=== PATIENT | female | born 1955 | race Caucasian/White ===

== ENCOUNTER 2017-07-06 07:59 | Emergency (ER) | payer OTHER ==
[2017-07-06] MEDS ORDERED: ONDANSETRON 4 MG/2 ML VIAL IVP ONE (08:11)
[2017-07-06] MEDS ORDERED: NS 1,000 ML IV ONE ×2 (08:11→09:55)
[2017-07-06] MEDS ORDERED: DIAZEPAM 10 MG/2 ML SYR IVP ONE (08:13)
--- NOTE | 2017-07-06 08:16 | EDPHY ---
H & P Stated Complaint: Diarrhea Time Seen by Provider: 07/06/17 08:04 HPI/ROS: CHIEF COMPLAINT: Diarrhea HISTORY OF PRESENT ILLNESS: The patient is a 61-year-old female with history of adrenal insufficiency who states that she has had 8 episodes of watery diarrhea since last night. The last one had some reddish blood mixed in. No fever. She complains of cramping but no pain. No recent travel. No vomiting. REVIEW OF SYSTEMS: Constitutional: denies: chills, fever, recent illness, recent injury EENTM: denies: blurred vision, double vision, nose congestion Respiratory: denies: cough, shortness of breath Cardiac: denies: chest pain, irregular heart rate, lightheadedness, palpitations Gastrointestinal/Abdominal: See HPI denies: abdominal pain, vomiting, blood streaked stools Genitourinary: denies: dysuria, frequency, hematuria, pain Musculoskeletal: denies: joint pain, muscle pain Skin: denies: lesions, rash, jaundice, bruising Neurological: denies: headache, numbness, paresthesia, tingling, dizziness, weakness Hematologic/Lymphatic: denies: blood clots, easy bleeding, easy bruising Immunologic/allergic: denies: HIV/AIDS, transplant EXAM: GENERAL: Well-appearing, well-nourished and in no acute distress. HEAD: Atraumatic, normocephalic. EYES: Pupils equal round and reactive to light, extraocular movements intact, sclera anicteric, conjunctiva are normal. ENT: TMs normal, nares patent, oropharynx clear without exudates. Moist mucous membranes. NECK: Normal range of motion, supple without lymphadenopathy or JVD. LUNGS: Breath sounds clear to auscultation bilaterally and equal. No wheezes rales or rhonchi. HEART: Regular rate and rhythm without murmurs, rubs or gallops. ABDOMEN: Soft, nontender, normoactive bowel sounds. No guarding, no rebound. No masses appreciated. Rectal: Empty vault, Hemoccult negative BACK: No CVA tenderness, no spinal tenderness, step-offs or deformities EXTREMITIES: Normal range of motion, no pitting or edema. No clubbing or cyanosis. NEUROLOGICAL: Cranial nerves II through XII grossly intact. Normal speech, normal gait. 5/5 strength, normal movement in all extremities, normal sensation PSYCH: Normal mood, normal affect. SKIN: Warm, dry, normal turgor, no visible rashes or lesions. Source: Patient Exam Limitations: No limitations - Medical/Surgical History Hx Asthma: No Hx Chronic Respiratory Disease: No Hx Diabetes: No Hx Cardiac Disease: Yes Hx Renal Disease: No Hx Cirrhosis: No Hx Alcoholism: No Hx HIV/AIDS: No Hx Splenectomy or Spleen Trauma: No Other PMH: HTN, back surgery, brain surgery x 2, bilateral knee surgery and bilateral carpal tunnel release/ lt shoulder, pituitary tumor, adrenal insufficiency, hypothyroidism - Family History Significant Family History: No pertinent family hx - Social History Smoking Status: Never smoked Alcohol Use: Sober Drug Use: None Constitutional: Initial Vital Signs Temperature (C) 36.7 C 07/06/17 08:04 Heart Rate 96 07/06/17 08:04 Respiratory Rate 20 07/06/17 08:04 Blood Pressure 112/75 07/06/17 08:04 O2 Sat (%) 96 07/06/17 08:04 O2 Delivery Mode Room Air O2 (L/minute) 1 Allergies/Adverse Reactions: Sulfa (Sulfonamide Antibiotics) Allergy (Mild, Verified 07/06/17 08:03) EMESIS Home Medications: Medication Instructions Recorded HYDROcodone/CPM TUSSIONEX 5 ml PO HS 09/05/15 [Tussionex Suspension (*)] levOFLOXACIN [levAQUIN (*)] 750 mg PO DAILY 09/05/15 Hydrocortisone [Cortef] 10 mg PO BID #21 tablet 09/06/15 Levothyroxine [Synthroid 25 mcg 25 mcg PO DAILY06 #0 tab 09/06/15 (*)] Ondansetron Odt [Zofran Odt 4 mg 4 mg PO Q4 PRN #40 tab 09/06/15 (*)] Medical Decision Making Procedures: Proctoscopy: No visible stool, no hemorrhoids. ED Course/Re-evaluation: 8:55 a.m. the patient is feeling much better. She has received 0.5 L of fluids. We discussed her lab work. Her abdominal exam remains benign. We continue to observe. 9:55 a.m. patient continues to have slight cramping that she thinks is gas. She has finished her L of fluid. Will hang another. 10:35 a.m. the patient is feeling much better and is eager to go will discharge her at this time. We discussed follow-up and indications for returning. Differential Diagnosis: Partial list of the Differential diagnosis considered include but were not limited to; gastritis, food poisoning, traumas diarrhea and although unlikely based on the history and physical exam, I also considered ulcerative colitis, Crohn's disease, obstruction, ischemia, appendicitis. I discussed these differential diagnoses and the plan with the patient as well as the usual and expected course. The patient understands that the diagnosis is provisional and that in medicine we are not always correct and that further workup is often warranted. Usual and customary warnings were given. All of the patient's questions were answered. The patient was instructed to return to the emergency department should the symptoms at all worsen or return, otherwise to followup with the physician as we discussed. - Data Points Laboratory Results: Laboratory Results 07/06/17 08:25 07/06/17 08:25 07/06/17 07/06/17 08:25 08:25 WBC 11.73 10^3/uL H 10^3/uL (3.80-9.50) RBC 4.86 10^6/uL 10^6/uL (4.18-5.33) Hgb 14.4 g/dL g/dL (12.6-16.3) Hct 40.9 % % (38.0-47.0) MCV 84.2 fL fL (81.5-99.8) MCH 29.6 pg pg (27.9-34.1) MCHC 35.2 g/dL g/dL (32.4-36.7) RDW 13.8 % % (11.5-15.2) Plt Count 294 10^3/uL 10^3/uL (150-400) MPV 9.3 fL fL (8.7-11.7) Neut % (Auto) 68.5 % % (39.3-74.2) Lymph % (Auto) 24.8 % % (15.0-45.0) Real % (Auto) 4.5 % % (4.5-13.0) Eos % (Auto) 1.4 % % (0.6-7.6) Baso % (Auto) 0.5 % % (0.3-1.7) Nucleat RBC Rel Count 0.0 % % (0.0-0.2) Absolute Neuts (auto) 8.02 10^3/uL H 10^3/uL (1.70-6.50) Absolute Lymphs (auto) 2.91 10^3/uL 10^3/uL (1.00-3.00) Absolute Monos (auto) 0.53 10^3/uL 10^3/uL (0.30-0.80) Absolute Eos (auto) 0.17 10^3/uL 10^3/uL (0.03-0.40) Absolute Basos (auto) 0.06 10^3/uL 10^3/uL (0.02-0.10) Absolute Nucleated RBC 0.00 10^3/uL 10^3/uL (0-0.01) Immature Gran % 0.3 % % (0.0-1.1) Immature Gran # 0.04 10^3/uL 10^3/uL (0.00-0.10) Sodium 139 mEq/L mEq/L (135-145) Potassium 4.2 mEq/L mEq/L (3.3-5.0) Chloride 102 mEq/L mEq/L (97-110) Carbon Dioxide 22 mEq/l mEq/l (22-31) Anion Gap 15 mEq/L mEq/L (8-16) BUN 18 mg/dL mg/dL (7-23) Creatinine 0.8 mg/dL mg/dL (0.6-1.0) Estimated GFR > 60 Glucose 96 mg/dL mg/dL (70-100) Calcium 11.5 mg/dL H mg/dL (8.5-10.4) Phosphorus 5.5 mg/dL H mg/dL (2.5-4.5) Total Bilirubin 0.7 mg/dL mg/dL (0.1-1.4) Conjugated Bilirubin 0.2 mg/dL mg/dL (0.0-0.5) Unconjugated Bilirubin 0.5 mg/dL mg/dL (0.0-1.1) AST 28 IU/L IU/L (14-46) ALT 28 IU/L IU/L (9-52) Alkaline Phosphatase 89 IU/L IU/L (38-126) Total Protein 7.6 g/dL g/dL (6.3-8.2) Albumin 4.2 g/dL g/dL (3.5-5.0) Lipase 158 IU/L IU/L (23-300) Medications Given: Discontinued Medications Diazepam (Valium) 2.5 mg IVP EDNOW ONE Stop: 07/06/17 08:14 Last Admin: 07/06/17 08:30 Dose: 2.5 mg Sodium Chloride (Ns) 1,000 mls @ 0 mls/hr IV EDNOW ONE; Wide Open PRN Reason: Protocol Stop: 07/06/17 08:12 Last Admin: 07/06/17 08:25 Dose: 1,000 mls Sodium Chloride (Ns) 1,000 mls @ 0 mls/hr IV EDNOW ONE; Wide Open PRN Reason: Protocol Stop: 07/06/17 09:56 Last Admin: 07/06/17 09:59 Dose: 1,000 mls Ketorolac Tromethamine (Toradol) 30 mg IVP EDNOW ONE Stop: 07/06/17 09:56 Last Admin: 07/06/17 10:00 Dose: 30 mg Ondansetron HCl (Zofran) 4 mg IVP EDNOW ONE Stop: 07/06/17 08:12 Last Admin: 07/06/17 08:28 Dose: 4 mg Departure - Departure Disposition: Home, Routine, Self-Care Clinical Impression: Dehydration Diarrhea Qualifiers: Diarrhea type: unspecified type Qualified Code(s): R19.7 - Diarrhea, unspecified Condition: Fair Instructions: Dehydration (ED), Acute Diarrhea (ED) Referrals: Eleonora Trejo MD [Primary Care Provider] - As per Instructions Stand Alone Forms: Work Excuse
[2017-07-06 08:30] LABS: PLATELET COUNT 294 10^3/uL (150-400)
[2017-07-06] MEDS ORDERED: KETOROLAC 30 MG/1 ML SDV IVP ONE (09:55)
[2017-07-06 10:32] VITALS: BP 106/49
== END 2017-07-06 10:45 | disposition home or self-care (01) ==
LOC: CED 07:59
DX: E86.0 Dehydration (principal); I10 Essential (primary) hypertension; E86.9 Volume depletion, unspecified
CPT/HCPCS: 80048-PO; 80076-PO; 83690-PO; 84100-PO; 85025-PO; 96374; J1885; J2405; J3360

== ENCOUNTER 2017-07-07 08:22 | Inpatient (IN) | payer OTHER ==
--- NOTE | 2017-07-07 08:29 | EDPHY ---
H & P Time Seen by Provider: 07/07/17 08:28 HPI/ROS: CHIEF COMPLAINT: Bloody diarrhea HISTORY OF PRESENT ILLNESS: Seen yesterday at [facility] Emergency Department for 8 episodes of watery diarrhea since the previous night , the last 1 had some reddish blood. She was treated with IV fluids, had no hemorrhoids visible on anal scope exam, white blood cell count 11.7 with hematocrit 40, normal electrolytes and BUN and creatinine. Since discharge the patient has continued to have multiple episodes of bloody diarrhea. She is unable to drink even water without having severe abdominal cramps followed by which she describes as mostly blood and less diarrhea at this time. Worse with oral intake. Not associated with fever or chills or vomiting. No black stools. REVIEW OF SYSTEMS: Eye: no change in vision ENT: no sore throat Cardiac: no chest pain or syncope Pulmonary: no cough or SOB Abdomen: HPI Musculoskeletal: no back pain Skin: no rash Neuro: Headache yesterday Constitutional: no fever : no urinary symptoms A comprehensive 10 point review of systems is otherwise negative aside from elements mentioned in the history of present illness. PAST MEDICAL HISTORY: Yesterday's [facility] ED visit reviewed includes hypertension, back surgery, brain surgery x2, bilateral knee surgery and carpal tunnel release. Pituitary tumor with adrenal insufficiency, hypothyroid Social history: Nonsmoker, no alcohol General Appearance: Alert and conversant, cooperative. Eyes: No scleral icterus. ENT, Mouth: Slightly dry mucous membranes. Respiratory: Normal respiratory effort, breath sounds equal, lungs are clear to auscultation. Cardiovascular: Regular rate and rhythm. Gastrointestinal: Left lower quadrant abdominal tenderness, no rebound or guarding, bowel sounds present. Neurological: Alert, face symmetric, normal motor and sensory in extremities. Skin: Warm and dry, no rashes. Musculoskeletal: No peripheral edema. Psychiatric: Not agitated. Emergency Department course/MDM: Differential including but not limited to GI bleed, infectious colitis, ischemic colitis, gastroenteritis. Plan for IV hydration, check electrolytes and consider IV hydrocortisone, CT scanning after i-STAT. 929: Hematocrit 36, was 40 yesterday and today's value was with dehydration. 1045: Re-evaluated patient, recommendation for admission with worsening symptoms and colitis on CT with dropping hematocrit and high risk for electrolyte abnormality with underlying adrenal insufficiency. 100 mg IV hydrocortisone refused by patient due to concern over side effects, will agree to take her usual oral dose. Smoking Status: Never smoked Constitutional: Initial Vital Signs Temperature (C) 36.9 C 07/07/17 08:27 Heart Rate 90 07/07/17 08:27 Respiratory Rate 18 07/07/17 08:27 Blood Pressure 135/93 H 07/07/17 08:27 O2 Sat (%) 97 07/07/17 08:27 O2 Delivery Mode Room Air Allergies/Adverse Reactions: Sulfa (Sulfonamide Antibiotics) Allergy (Mild, Verified 07/07/17 08:25) EMESIS Home Medications: Medication Instructions Recorded Acetaminophen [Tylenol 325mg (*)] 325 mg PO DAILY PRN 07/07/17 Carboxymethylcellulose 1% [Refresh 1 drop EACHEYE DAILY PRN 07/07/17 Celluvisc (*)] Hydrocortisone [Cortef] 5 - 10 mg PO DAILY 07/07/17 Lisinopril [Zestril 5 mg (*)] 5 mg PO HS 07/07/17 Medical Decision Making - Diagnostics Imaging Results: Transverse and descending colitis at 10:[address] Hedrick. Consult/Admit Bed Type: [facility] for Dr. Cisneros 105 - Data Points Laboratory Results: Laboratory Results 07/07/17 08:55 07/07/17 08:55 07/07/17 07/07/17 08:55 08:55 Hct 36.0 % L % (38.0-47.0) ESR 6 MM/HR MM/HR (0-30) C-Reactive Protein 40.1 mg/L H mg/L (<10.0) Microbiology Results: MICROBIOLOGY 07/07/17 08:37 Stool Gastrointestinal Tract Panel (PCR) - Final No Organism Detected Medications Given: Acetaminophen (Tylenol) 650 mg PO Q4HRS PRN PRN Reason: Pain, Mild/Fever, Can Take PO Stop: 01/03/18 13:23 Last Admin: 07/07/17 21:00 Dose: 650 mg Hydrocortisone (Solucortef) 25 mg IVP Q8HRS STAS Stop: 01/03/18 13:59 Last Admin: 07/07/17 21:02 Dose: 25 mg Sodium Chloride (Ns) 1,000 mls @ 100 mls/hr IV CONT STAS Stop: 01/03/18 13:29 Last Admin: 07/07/17 14:04 Dose: 1,000 mls Discontinued Medications Hydrocortisone (Solucortef) 100 mg IVP EDNOW ONE Stop: 07/07/17 10:51 Last Admin: 07/07/17 11:10 Dose: Not Given Hydrocortisone (Cortef) 5 mg PO ONCE ONE Stop: 07/07/17 11:06 Last Admin: 07/07/17 11:35 Dose: 5 mg Sodium Chloride (Ns) 1,000 mls @ 0 mls/hr IV EDNOW ONE; Wide Open PRN Reason: Protocol Stop: 07/07/17 09:05 Last Admin: 07/07/17 09:05 Dose: 1,000 mls Sodium Chloride (Ns) 1,000 mls @ 0 mls/hr IV EDNOW ONE; Wide Open PRN Reason: Protocol Stop: 07/07/17 09:05 Last Admin: 07/07/17 09:05 Dose: 1,000 mls Departure - Departure Disposition: [facility] Inpatient Acute Clinical Impression: Colitis Condition: Good
[2017-07-07] MEDS ORDERED: NS 1,000 ML IV ONE ×2 (09:04)
[2017-07-07 09:05] LABS: PLATELET COUNT 239 10^3/uL (150-400)
[2017-07-07] MEDS ORDERED: IOPAMIDOL (ISOVUE-300) 100 ML BTL ONE (09:20)
[2017-07-07] MEDS ORDERED: HYDROCORTISONE 100 MG/2 ML VIAL IVP ONE (10:50)
[2017-07-07] MEDS ORDERED: HYDROCORTISONE 10 MG TAB PO ONE (11:05)
[2017-07-07] MEDS ORDERED: ONDANSETRON DISINTEGRATING 4 MG TAB PO PRN (13:24)
[2017-07-07] MEDS ORDERED: ONDANSETRON 4 MG/2 ML VIAL IVP PRN (13:24)
[2017-07-07] MEDS: NS 1,000 ML IV SCH (14:04)
[2017-07-07] MEDS ORDERED: oxyCODONE IR 5 MG TAB PO PRN (14:46)
[2017-07-07] MEDS ORDERED: HYDROmorphone HCL/NS 0.5 MG/ML SYR IVP PRN (14:46)
[2017-07-07] MEDS ORDERED: CARBOXYMETHYLCELLULOSE 1% 0.4 ML DROPERETTE EACHEYE PRN (14:48)
[2017-07-07] MEDS: HYDROCORTISONE 100 MG/2 ML VIAL IVP SCH ×2 (14:55→21:02)
--- NOTE | 2017-07-07 15:14 | GHP ---
[f rep st] HISTORY AND PHYSICAL DATE OF ADMISSION: 07/07/2017 CHIEF COMPLAINT: Abdominal pain and bloody diarrhea. HISTORY OF PRESENT ILLNESS: This is a 61-year-old female with a history of adrenal insufficiency who presents with 2 days of bloody diarrhea. Her symptoms started about 4 days ago with some mild abdom inal cramping. Notably, she had a recent prednisone taper for an allergic reaction to a palm tree th at she had rubbed up against in [place]. However, she tells me that starting 4 days ago, she had leonel e abdominal cramping. At that point, her bowel movements were normal. Starting 2 days ago, she had an episode of bloody diarrhea. She has had a few episodes since then. She went to urgent care yeste rday. Labs were normal. She was sent home after receiving 2 L of fluid. She presents to the ED tod ay again with persistent symptoms. She has had a little bit of nausea, one episode of emesis. No re al questionable meals. No recent camping or travel other than going to [place] about 3 weeks ago. S he has no history of heart arrhythmias, atrial fibrillation, or atrial flutter. Her blood pressure w as a little bit low at urgent care yesterday. She is on lisinopril 5 mg. She has been taking and to lerating her hydrocortisone. Imaging in the ED showed colitis. Labs revealed a hemoglobin of 12.2. PAST MEDICAL/SURGICAL HISTORY: 1. Pituitary adenoma status post resection. 2. Hypothyroid. 3. Renal insufficiency. MEDICATIONS: Please see medication reconciliation. ALLERGIES: Sulfa. FAMILY HISTORY: No arrhythmias. SOCIAL HISTORY: She does not drink or smoke. REVIEW OF SYSTEMS: 10-point review of systems is conducted and is negative except per HPI. PHYSICAL EXAM: VITAL SIGNS: Blood pressure 162/92, heart rate is 79, respiration rate 14, saturatin g 98% on room air. Temperature 36.7. GENERAL: The patient is a pleasant female who is resting comfo rtably. No acute distress. HEENT: Normocephalic, atraumatic. CARDIOVASCULAR: Regular rate and rh ythm. No murmurs, rubs, or gallops. PULMONARY: Lungs clear to auscultation bilaterally. ABDOMEN: Soft. She is mildly tender to palpation in the left lower quadrant. She has no guarding or rebound . She has normal bowel sounds. SKIN: No rash. : No Jay. NEUROLOGIC: Alert and oriented x3. She is moving all extremities. PSYCHIATRIC: Normal mood and affect. LABS: Hemoglobin is 12.2. Basic metabolic panel is normal. ESR and CRP are pending. DATA: 1. I reviewed her chart including Dr. Dickerson's note, as well as note from Dr. Cardona from Urgent Care yesterday. 2. I reviewed her abdominal CT scan which shows diffuse colitis from the mid transverse colon to the lower descending colon. IMPRESSION AND PLAN: 1. Colitis: Her gastrointestinal pathogen panel was negative, making infection less likely. Consid er both ischemia, as well as inflammatory; I favor ischemia at this point possibly due to watershed i schemia from hypotension. Discussed informally with Dr. Constantino who recommends conservative treatment a t this point. Will formally consult him if she does not improve. Fortunately, her labs and exam saranya ssuring. I do not think she needs empiric antibiotics at this point. Give her some intravenous hydr ation overnight and follow her closely. I placed her on telemetry to look for occult atrial fibrilla tion or flutter which would predispose her to this as well. 2. Adrenal insufficiency: Given her a slightly higher dose of intravenous hydrocortisone in the pattie ntime. 3. Hypothyroid: She does not appear to be on replacement at this point. 4. Mild hypertension: Will hold her lisinopril. /[id number]/MODL
--- NOTE | 2017-07-07 17:10 | ASMTCMCOM ---
CM Note CM Note Notes: CM spoke with RN, anticipate pt will dc home independent when medically stable. CM available for any changes. DC Plan: Independent Date Signed: 07/07/2017 05:09 PM Electronically Signed By:Anne Uribe RN
[2017-07-07] MEDS: ACETAMINOPHEN 325 MG TAB PO PRN (21:00)
[2017-07-08] MEDS: HYDROCORTISONE 100 MG/2 ML VIAL IVP SCH (04:56)
[2017-07-08] MEDS: ACETAMINOPHEN 325 MG TAB PO PRN (04:57)
--- NOTE | 2017-07-08 09:24 | HOSPPROG ---
Hospitalist Progress Note Assessment/Plan: # colitis - suspect ischemia from low BPs, but elevated crp noted - no BM x 24 hours; no a-fib on tele - clear liquid diet this am # ABLA d/t hematochezia - follow closely # AI - restart home PO hydrocortisone # htn - low BPs now, holding lisinopril Subjective: no BM in last 24 hours Objective: Vital Signs Temp Pulse Resp BP Pulse Ox 36.6 C 64 16 141/85 H 97 07/08/17 07:56 07/08/17 07:56 07/08/17 07:56 07/08/17 07:56 07/08/17 07:56 Laboratory Results 07/08/17 05:25 07/07/17 07/08/17 07/09/17 05:59 05:59 05:59 Intake Total 2000 Output Total 1000 Balance 1000 high risk with diffuse colitis ICD10 Worksheet Patient Problems: Problems Problem Status Onset Hyponatremia Acute CAP (community acquired pneumonia) Acute Colitis Acute
[2017-07-08] MEDS ORDERED: HYDROCORTISONE PO SCH (09:30)
[2017-07-08] MEDS: NS 1,000 ML IV SCH (10:46)
[2017-07-08 12:17] LABS: PLATELET COUNT 220 10^3/uL (150-400)
--- NOTE | 2017-07-08 12:46 | PDMN ---
Medical Necessity Medical necessity: Pt meets INPT criteria per MD and MCG M-182 GI Bleeding, Lower (colitis - suspect ischemia from low BPs, acute blood loss anemia - hgb 10.8 - d/t hematochezia, hx adrenal insufficiency, hypertension; requiring ongoing IVF, starting clear liquid diet 07/08/17, est. LOS >2 MN, high risk with diffuse colitis).
[2017-07-09] MEDS: ACETAMINOPHEN 325 MG TAB PO PRN (01:29)
[2017-07-09 05:05] LABS: PLATELET COUNT 219 10^3/uL (150-400)
[2017-07-09 07:20] VITALS: BP 152/96
[2017-07-09] MEDS ORDERED: HYDROCORTISONE 10 MG TAB PO SCH (09:00)
--- NOTE | 2017-07-09 10:07 | GDS ---
[f rep st] DISCHARGE SUMMARY ALL DIAGNOSES: 1. Colitis, suspected ischemic. 2. Acute blood loss anemia. 3. Adrenal insufficiency. 4. Hypertension. HOSPITAL COURSE: A 61-year-old female, admitted with significant hematochezia. CT scan of her abdom en showed mid transverse to descending colitis. She was slightly hypotensive on admission. I suspec t this is likely ischemic colitis in the setting of low blood pressure. She is placed on supportive care, has significantly improved, and has not had a bowel movement since admission. Her blood counts have stabilized. Her hemoglobin on discharge is 10.6. She is eating and drinking well, able to deanna ntain her own hydration needs. Discussed this informally with Dr. Constantino. He recommends a followup co lonoscopy about 1 month after discharge. I have given her his information to call and schedule this. I considered infective colitis, although her GI pathogen panel was negative. I also considered infla mmatory bowel disease as her initial CRP was slightly elevated. However, she improved without any hi gher dose steroids. She does have adrenal insufficiency and takes normally 5-10 mg of hydrocortisone a day. I have instructed her to hold her low-dose lisinopril for any systolic blood pressures under 130 for the next week. After that, she can go back to her normal dose. She is comfortable with all these plans. I have written her a work excuse to return to work the Wednesday following her discharge . BILLING: I spent more than 30 minutes on the day of discharge coordinating care. /[id number]/MODL
== END 2017-07-09 11:05 | disposition home or self-care (01) | DRG 394 ==
LOC: OBSVTOIN 10:50 → F3E 11:22
PROVIDERS: ADMIT Student in an Organized Health Care Education/Training Program; ATTEND Student in an Organized Health Care Education/Training Program
DX: K55.9 Vascular disorder of intestine, unspecified (principal); D62 Acute posthemorrhagic anemia; E27.40 Unspecified adrenocortical insufficiency; I10 Essential (primary) hypertension; E03.9 Hypothyroidism, unspecified; E86.0 Dehydration
CPT/HCPCS: 82947-QW; G0378; J1720; Q9967

== ENCOUNTER → 2017-11-05 | Outpatient (CLI) | payer OTHER | LOC: CIMAGING 09:55 | PROVIDERS: ATTEND Family Medicine | DX: Z12.31 Encounter for screening mammogram for malignant neoplasm of breast (principal) ==